=== PATIENT | female | born 1980 | race African-American/Black ===

== ENCOUNTER 2022-05-04 20:33 | Emergency (ER) | payer MEDICAID ==
[~2022-05-04] VITALS: Ht 165.1 cm; Wt 81.8 kg
[2022-05-04] MEDS ORDERED: diphenhydrAMINE 50 mg/ml inj IM ONE (20:45)
[2022-05-04] MEDS ORDERED: haloperidol lactate 5mg/ml inj IM ONE (20:45)
[2022-05-04] MEDS ORDERED: LORazepam 2 mg/ml vial IM ONE (20:45)
[2022-05-04 22:52] LABS: BASOPHILS % (AUTO) 0.4 % (0-1); EOSINOPHILS # (AUTO) 0.1 X10'3 (0-0.9); EOSINOPHILS % (AUTO) 0.7 % (0-6); HEMATOCRIT 39.1 % (35.0-45.0); HEMOGLOBIN 13.5 g/dl (12.0-16.0); LYMPHOCYTES # (AUTO) 1.7 X10'3 (1.1-4.8); LYMPHOCYTES % (AUTO) 16.8 % (21-51); MEAN CORPUSCULAR HEMOGLOBIN 30.4 PG (27.0-31.0); MEAN CORPUSCULAR HGB CONC 34.6 g/dL (33.0-36.5); MEAN CORPUSCULAR VOLUME 87.7 FL (78-98); MEAN PLATELET VOLUME 8.1 FL (7.4-10.4); MONOCYTES # (AUTO) 1.4 X10'3 (0-0.9); MONOCYTES % (AUTO) 13.8 % (2-12); NEUTROPHILS # (AUTO) 7.1 X10'3 (1.8-7.7); NEUTROPHILS % (AUTO) 68.3 % (42-75); PLATELET COUNT 231 X10'3 (140-440); RED BLOOD COUNT 4.46 X10'6 (4.20-5.60); RED CELL DISTRIBUTION WIDTH 13.1 % (11.5-14.5); WHITE BLOOD COUNT 10.4 X10'3 (4.5-11.0)
[2022-05-04 22:53] LABS: ALANINE AMINOTRANSFERASE 34 U/L (12-78); ALBUMIN 4.4 G/DL (3.4-5.0); ALKALINE PHOSPHATASE 71 IU/L (46-116); ANION GAP 9 (8-16); ASPARTATE AMINO TRANSFERASE 48 U/L (10-37); BILIRUBIN,TOTAL 1.2 MG/DL (0.1-1.0); BLOOD UREA NITROGEN 29 MG/DL (7-18); BUN/CREATININE RATIO 18.5 (6.6-38.0); CALCIUM 9.1 MG/DL (8.5-10.1); CHLORIDE 102 MMOL/L (99-107); CREATININE 1.57 MG/DL (0.40-0.90); ETHANOL < 0.010 GM/DL (0.0-0.010); GLUCOSE 92 MG/DL (70-104); POTASSIUM 3.2 MMOL/L (3.5-5.1); SODIUM 141 MMOL/L (135-145); TOTAL PROTEIN 8.7 G/DL (6.4-8.2); eGFR 36 ML/MIN
[2022-05-04] MEDS ORDERED: potassium Cl 20 mEq SR tablet PO STA (23:37)
[2022-05-04] MEDS ORDERED: potassium Cl 10 mEq/100mL bag IV ONE (23:40)
[2022-05-04] MEDS ORDERED: normal saline 1000ML IV soln IVB ONE (23:40)
--- NOTE | 2022-05-05 02:48 | NUR ---
Still unable to wake patient up enough to safely administer PO potassium
[2022-05-05 08:17] LABS: BASOPHILS % (AUTO) 0.5 % (0-1); EOSINOPHILS # (AUTO) 0.3 X10'3 (0-0.9); EOSINOPHILS % (AUTO) 2.8 % (0-6); HEMATOCRIT 41.7 % (35.0-45.0); HEMOGLOBIN 14.5 g/dl (12.0-16.0); LYMPHOCYTES # (AUTO) 2.1 X10'3 (1.1-4.8); LYMPHOCYTES % (AUTO) 21.6 % (21-51); MEAN CORPUSCULAR HEMOGLOBIN 30.6 PG (27.0-31.0); MEAN CORPUSCULAR HGB CONC 34.8 g/dL (33.0-36.5); MEAN CORPUSCULAR VOLUME 88.1 FL (78-98); MEAN PLATELET VOLUME 8.3 FL (7.4-10.4); MONOCYTES # (AUTO) 0.9 X10'3 (0-0.9); MONOCYTES % (AUTO) 9.6 % (2-12); NEUTROPHILS # (AUTO) 6.3 X10'3 (1.8-7.7); NEUTROPHILS % (AUTO) 65.5 % (42-75); PLATELET COUNT 222 X10'3 (140-440); RED BLOOD COUNT 4.74 X10'6 (4.20-5.60); RED CELL DISTRIBUTION WIDTH 13.1 % (11.5-14.5); WHITE BLOOD COUNT 9.6 X10'3 (4.5-11.0)
[2022-05-05 08:37] LABS: ALANINE AMINOTRANSFERASE 35 U/L (12-78); ALBUMIN 4.3 G/DL (3.4-5.0); ALBUMIN/GLOBULIN RATIO 0.9 (1.1-1.5); ALKALINE PHOSPHATASE 73 IU/L (46-116); ANION GAP 11 (8-16); ASPARTATE AMINO TRANSFERASE 63 U/L (10-37); BILIRUBIN,TOTAL 1.2 MG/DL (0.1-1.0); BLOOD UREA NITROGEN 26 MG/DL (7-18); BUN/CREATININE RATIO 25.5 (6.6-38.0); CALCIUM 9.1 MG/DL (8.5-10.1); CHLORIDE 102 MMOL/L (99-107); CREATININE 1.02 MG/DL (0.40-0.90); GLUCOSE 87 MG/DL (70-104); SODIUM 142 MMOL/L (135-145); TOTAL PROTEIN 8.9 G/DL (6.4-8.2); eGFR 60 ML/MIN
[2022-05-05 08:39] LABS: POTASSIUM 2.9 MMOL/L (3.5-5.1)
--- NOTE | 2022-05-05 08:44 | NUR ---
PT SLEEPING, NO S/S OF DISTRESS NOTED
[2022-05-05] MEDS ORDERED: potassium Cl 20 mEq SR tablet PO ONE (08:55)
[2022-05-05 21:14] LABS: CLARITY,URINE CLEAR (Clear); COLOR,URINE YELLOW (Yellow); GLUCOSE, URINE NEGATIVE (Neg); KETONES,URINE 15 mg/dl (Neg); LEUKOCYTE ESTERASE ,URINE NEGATIVE (Neg); NITRITES, URINE NEGATIVE (Neg); OCCULT BLOOD,URINE SMALL (Neg); PROTEIN,URINE 30 mg/dl (Neg); UROBILINOGEN,URINE 0.2 E.U/dL (0.2-1.0)
[2022-05-05 21:18] LABS: URINE HCG NEGATIVE (NEG)
--- NOTE | 2022-05-05 21:22 | NUR ---
pt transferred to ER overflow. PT is given warm blanket and a water pitcher
[2022-05-05 21:29] LABS: UA COLLECTION TYPE CLN CATCH MIDSTREAM
[2022-05-05 21:31] LABS: BACTERIA,URINE FEW /HPF (Neg); RBC,URINE 0-2 /HPF (0-2)
[2022-05-05 21:32] LABS: SQUAMOUS EPITHELIAL CELL,UR FEW /LPF (FEW)
[2022-05-05 21:43] LABS: URINE AMPHETAMINE SCREEN POSITIVE (Neg); URINE BARBITUATE SCREEN NEGATIVE (Neg); URINE BENZODIAZEPINES SCREEN POSITIVE (Neg); URINE CANNABINOID SCREEN POSITIVE (Neg); URINE COCAINE SCREEN POSITIVE (Neg); URINE METHADONE SCREEN NEGATIVE (Neg); URINE OPIATE SCREEN NEGATIVE (Neg); URINE PHENCYCLIDINE SCREEN NEGATIVE (Neg)
--- NOTE | 2022-05-06 01:00 | NUR ---
pt laying in bed quietly, looking at her hands
--- NOTE | 2022-05-06 03:48 | NUR ---
pt asleep on back respirations even and unlabored
--- NOTE | 2022-05-06 07:06 | NUR ---
Received Pt in bed sleeping w/o distress. Pt up to bathroom and returned to sleep.
--- NOTE | 2022-05-06 09:00 | NUR ---
Pt up to bathroom multiple times. Pt used phone to call father of children and ate breakfast. Pt talkative and pleasant. Pressured speech at times. Pt reports needing to get back on her meds.
[2022-05-06] MEDS ORDERED: LURA60TA PO (09:02)
[2022-05-06] MEDS ORDERED: QUET50TA PO (09:02)
[2022-05-06] MEDS ORDERED: ESCI20TA PO (09:04)
[2022-05-06] MEDS ORDERED: ATOM40CA7 PO (09:08)
[2022-05-06] MEDS ORDERED: ALPR-624 PO (09:10)
[2022-05-06] MEDS ORDERED: HYDR25TA5 PO (09:12)
[2022-05-06] MEDS ORDERED: FERR325T28 PO (09:13)
[2022-05-06] MEDS ORDERED: NICO-687 TD (09:14)
[2022-05-06] MEDS: atomoxetine 40 MG capsule PO SCH (10:37)
[2022-05-06] MEDS: nicotine 21mg patch - 24 hr TD SCH (10:38)
--- NOTE | 2022-05-06 11:00 | NUR ---
Pt in bed and appears to be sleeping at this time. Med Rec completed signed and faxed to pharmacy.
[2022-05-06] MEDS: citalopram 20mg tablet PO SCH (12:05)
[2022-05-06] MEDS: ferrous sulfate 325mg tablet PO SCH (12:05)
[2022-05-06] MEDS: HYDROchlorothiazide 25mg tablet PO SCH (12:05)
[2022-05-06] MEDS: ALPRAZolam 0.5mg tablet PO PRN (12:19)
--- NOTE | 2022-05-06 13:30 | NUR ---
Pt woke for lunch and ate well. Pt given meds as prescribed; she wanted to wait until AM tomorrow to start back on Straterra and Baljit. Ptch. Pt received Alprazolam prn as well.
--- NOTE | 2022-05-06 15:00 | NUR ---
Pt in bed sleeping w/o distress. Attempts made to wake her in order to engage with [facility] music mixer, but Pt too groggy at this time and returned to sleep.
--- NOTE | 2022-05-06 18:01 | NUR ---
Phone # 'Father of children' [phone].
--- NOTE | 2022-05-06 19:00 | NUR ---
Patient is sleeping. Moved to main ED from overflow.
[2022-05-06] MEDS: lurasidone 60mg tablet PO SCH (21:00)
[2022-05-06] MEDS: quetiapine 100mg tablet PO SCH (21:00)
--- NOTE | 2022-05-06 21:45 | NUR ---
Patient is now sleeping quietly, she was medication compliant.
--- NOTE | 2022-05-07 03:05 | NUR ---
Patient sleeping quietly, no distress.
--- NOTE | 2022-05-07 03:37 | NUR ---
Patient is sleeping quietly, no distress.
--- NOTE | 2022-05-07 05:27 | NUR ---
Patient sleeps quietly. No distress.
--- NOTE | 2022-05-07 05:28 | NUR ---
Patient continues to sleep quietly. No distress.
[2022-05-07] MEDS: ferrous sulfate 325mg tablet PO SCH (07:53)
[2022-05-07] MEDS: nicotine 21mg patch - 24 hr TD SCH (07:53)
[2022-05-07] MEDS: citalopram 20mg tablet PO SCH (07:53)
[2022-05-07] MEDS: HYDROchlorothiazide 25mg tablet PO SCH (07:53)
[2022-05-07] MEDS: atomoxetine 40 MG capsule PO SCH (07:53)
--- NOTE | 2022-05-07 08:00 | NUR ---
The patient moved to bed 24 from the main ER. SHe is very drowsy but awakens briefly to answer guestions. She mumbles and is difficult to follow. Unable to assess fully 2nd to sedation
--- NOTE | 2022-05-07 10:01 | NUR ---
The patient appears to be sleeping at this time
--- NOTE | 2022-05-07 11:39 | NUR ---
The patient appears to be sleeping
--- NOTE | 2022-05-07 12:20 | NUR ---
The patient appears to be sleeping at this time
[2022-05-07] MEDS: ALPRAZolam 0.5mg tablet PO PRN (13:03)
--- NOTE | 2022-05-07 14:18 | NUR ---
The patient was up out of bed and is alert and oriented. She is wanting to return to [facility] but has no funds to do so at this time. She is aware that she is currently on a 5150 and the community health is seeking placement for her.
--- NOTE | 2022-05-07 16:20 | NUR ---
The patient is resting on her bed.
--- NOTE | 2022-05-07 17:49 | NUR ---
The patient is resting on her bed
--- NOTE | 2022-05-07 18:16 | NUR ---
PA made aware of patient high anxiety and orders received
--- NOTE | 2022-05-07 18:53 | NUR ---
Patient is cooperative but anxious. Atarax will be given.
[2022-05-07] MEDS ORDERED: hydrOXYzine 25 MG tablet PO ONE (18:55)
[2022-05-07] MEDS: lurasidone 60mg tablet PO SCH (20:08)
[2022-05-07] MEDS: quetiapine 100mg tablet PO SCH (20:08)
--- NOTE | 2022-05-07 20:12 | NUR ---
Patient is cooperative and becoming more upbeat. She is medication compliant.
--- NOTE | 2022-05-08 00:39 | NUR ---
Patient is sleeping quietly on her left side.
--- NOTE | 2022-05-08 02:40 | NUR ---
Patient is sleeping quietly on her left side. No distress.
--- NOTE | 2022-05-08 06:45 | NUR ---
PT IS SLEEPING ON HER RIGHT SIDE. RR EVEN AND UNLABORED.
--- NOTE | 2022-05-08 08:15 | NUR ---
PT ATE ALL OF HER MEAL TOOK HER MEDICATIONS PRESCRIBED THEN WENT BACK TO SLEEP. RR EVEN AND UNLABORED.
[2022-05-08] MEDS: citalopram 20mg tablet PO SCH (08:20)
[2022-05-08] MEDS: HYDROchlorothiazide 25mg tablet PO SCH (08:20)
[2022-05-08] MEDS: ferrous sulfate 325mg tablet PO SCH (08:20)
[2022-05-08] MEDS: nicotine 21mg patch - 24 hr TD SCH (08:21)
[2022-05-08] MEDS: atomoxetine 40 MG capsule PO SCH (08:22)
--- NOTE | 2022-05-08 10:20 | NUR ---
PT IS SLEEPING ON HER RIGHT SIDE. NO DISTRESS NOTED.
--- NOTE | 2022-05-08 12:21 | NUR ---
Report received from DINESH Maki. Pt. sitting up in bed eating lunch, no signs of distress noted.
[2022-05-08] MEDS: ALPRAZolam 0.5mg tablet PO PRN (12:58)
--- NOTE | 2022-05-08 12:58 | NUR ---
Pt. requesting anti-anxiety medications. Medication administered at this time.
--- NOTE | 2022-05-08 14:16 | NUR ---
Pt. resting in bed on her back, noted rise and fall of chest. No distress noted.
--- NOTE | 2022-05-08 16:36 | NUR ---
Pt resting in bed on her right side, noted rise and fall of chest.
[2022-05-08] MEDS ORDERED: ibuprofen tablet 400 MG TABLET PO ONE (16:55)
--- NOTE | 2022-05-08 17:05 | NUR ---
Pt. requesting motrin for ovarian cyst pain, PRN order obtained from MD. Pt. talking on the phone, no distress noted.
--- NOTE | 2022-05-08 18:12 | NUR ---
Pt. resting on her back with eyes closed. Noted rise and fall of chest.
--- NOTE | 2022-05-08 19:09 | NUR ---
PT SLEEPING ON LEFT SIDE. EQUAL RISE AND FALL OF CHEST NOTED
[2022-05-08] MEDS: quetiapine 100mg tablet PO SCH (20:27)
[2022-05-08] MEDS: lurasidone 60mg tablet PO SCH (20:27)
--- NOTE | 2022-05-08 21:06 | NUR ---
PT RESTING ON BACK WITH EYES CLOSED. EQUAL RISE AND FALL OF CHEST NOTED
--- NOTE | 2022-05-08 22:05 | NUR ---
PT SLEEPING COMFORTABLY ON HER BACK. EQUAL RISE AND FALL OF CHEST NOTED
--- NOTE | 2022-05-09 00:04 | NUR ---
PT LAYING WITH EYES CLOSED ON HER BACK. EQUAL RISE AND FALL OF CHEST NOTED
--- NOTE | 2022-05-09 02:06 | NUR ---
PATIENT SLEEPING ON SIDE. EQUAL RISE AND FALL OF CHEST NOTED
--- NOTE | 2022-05-09 04:03 | NUR ---
PATIENT SLEEPING ON BACK. EQUAL RISE AND FALL OF CHEST NOTED
--- NOTE | 2022-05-09 05:45 | NUR ---
PATIENT SLEEPING ON SIDE. EQUAL RISE AND FALL OF CHEST NOTED
--- NOTE | 2022-05-09 06:30 | NUR ---
PATIENT RECEIVED SLEEPING SUPINE IN HER ROOM AT CHANGE OF SHIFT. RESPIRATIONS EVEN, UNLABORED. NO S/S OF DISTRESS. WILL CONTINUE TO MONITOR.
--- NOTE | 2022-05-09 08:35 | NUR ---
PATIENT AWOKE AND IS OBSERVED EATING BREAKFAST IN HER ROOM AT THIS TIME. SHE IS CALM, PLEASANT, AND COOPERATIVE WITH CARE. PATIENT WAS RECEPTIVE TO SCHEDULED MEDICATION AND 1:1 ASSESSMENT. PATIENT DENIES SI,HI, AH OR VH. NO S/S OF DISTRESS OR COMPLAINTS NOTED AT THIS TIME.
[2022-05-09 08:50] VITALS: BP 131/89
[2022-05-09] MEDS: HYDROchlorothiazide 25mg tablet PO SCH (09:08)
[2022-05-09] MEDS: ferrous sulfate 325mg tablet PO SCH (09:09)
[2022-05-09] MEDS: atomoxetine 40 MG capsule PO SCH (09:09)
[2022-05-09] MEDS: citalopram 20mg tablet PO SCH (09:09)
[2022-05-09] MEDS: nicotine 21mg patch - 24 hr TD SCH (09:10)
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
--- NOTE | 2022-05-09 12:35 | NUR ---
PATIENT OBSERVED EATING LUNCH IN HER ROOM. NO COMPLAINTS OR CHANGES NOTED AT THIS TIME.
[2022-05-09] MEDS: ALPRAZolam 0.5mg tablet PO PRN (14:10)
== END 2022-05-09 14:52 ==
LOC: ER 20:34
DX: F23 Brief psychotic disorder (principal); Z20.822 Contact with and (suspected) exposure to COVID-19; Z88.0 Allergy status to penicillin; Z79.899 Other long term (current) drug therapy
CPT/HCPCS: 36415; 80053; 80305; 80320; 81001; 81025; 84132; 85025; 87088; 87811; 96372; 99285; J1200; J1630; J2060